=== PATIENT | male | born 1955 | race Two or more races ===

== ENCOUNTER 2018-12-23 19:26 | Inpatient (IN) | payer OTHER ==
[2018-12-23] VITALS (7 sets, daily range): BP systolic 95–132; BP diastolic 59–78
[~2018-12-23] VITALS: Ht 162.6 cm; Wt 68.0 kg
--- NOTE | 2018-12-23 19:30 | NUR ---
PT BIB RA. COMP OF "FEELING SOB" SAT 85% RA. NO ACUTE DISTRESS AT THIS TIME. RT PAGED AND AT BEDSIDE. MD AWARE OF PT CONDITION. PT AOX4. AMBULATORY. AWAITING EVAL.
[2018-12-23] MEDS ORDERED: ALBUTEROL FS 2.5 MG/3 ML VIAL.NEB ONE (19:41)
[2018-12-23] MEDS ORDERED: IPRATROPIUM NEB FS 0.5 MG/2.5 ML AMPUL.NEB ONE (19:41)
[2018-12-23] MEDS ORDERED: CEFEPIME 1 GM VIAL ONE (19:42)
--- NOTE | 2018-12-23 19:45 | NUR ---
LABS DRAWN SENT FOR ANALYSIS.
[2018-12-23 19:55] LABS: BASOPHILS % (AUTO) 0.1 % (0.0-2.0); HEMATOCRIT 26 % (39-51); HEMOGLOBIN 8.2 g/dL (13.5-17.5); LYMPHOCYTES # (AUTO) 0.4 /CMM (0.8-4.8); LYMPHOCYTES % (AUTO) 1.8 % (20.0-44.0); MEAN CORPUSCULAR HGB CONC 32 g/dl (31.0-36.0); MEAN CORPUSCULAR VOLUME 91 fL (80-96); MONOCYTES # (AUTO) 0.2 /CMM (0.1-1.30); MONOCYTES % (AUTO) 0.9 % (2.0-12.0); NEUTROPHILS # (AUTO) 21.4 /CMM (1.8-8.9); NEUTROPHILS % (AUTO) 97.2 % (43.0-81.0); PLATELET COUNT (AUTO) 203 /CMM (150-450); RED BLOOD CELL COUNT(AUTO) 2.84 MIL/uL (4.5-6.0)
[2018-12-23] MEDS ORDERED: IPRATROPIUM NEB FS 0.5 MG/2.5 ML AMPUL.NEB NEB ONE (20:00)
[2018-12-23] MEDS ORDERED: ALBUTEROL FS 2.5 MG/3 ML VIAL.NEB NEB ONE (20:00)
[2018-12-23] MEDS ORDERED: IV NS 0.9% 1,000 ML BAG IV ONE (20:00)
[2018-12-23] MEDS ORDERED: CEFEPIME 1 GM in IV D5W 50 ML IV ONE (20:00)
[2018-12-23 20:20] LABS: ALBUMIN 3.5 g/dL (3.4-5.0); BILIRUBIN,DIRECT 0.1 mg/dL (0.0-0.2); BILIRUBIN,TOTAL 0.4 mg/dL (0.2-1.0); CALCIUM, SERUM 9.7 mg/dL (8.5-10.1); CREATININE 0.9 mg/dL (0.6-1.3); POTASSIUM 4.4 mmol/L (3.5-5.1); TOTAL PROTEIN, SERUM 7.7 g/dL (6.4-8.2)
[2018-12-23 20:32] LABS: ABG BASE EXCESS 0.5 mmol/L; ABG OXYGEN SATURATION 99.2 % (92.0-98.5); ABG PCO2 34.9 mmHg (35.0-45.0); ABG PH 7.459 (7.350-7.450); ABG PO2 345.2 mmHg (75.0-100.0); AaDO2 332.9 mmHg; COHb 0.9 % (0.5-1.5); MetHb 0.4 % (0.0-1.5); O2Hb 97.9 % (94.0-97.0); SITE, ABG Left Brachial; VENT MODE, BG ST 18/8
[2018-12-23 20:45] LABS: APPEARANCE,URINE Cloudy (CLEAR); BILIRUBIN,URINE Negative (NEGATIVE); BLOOD, URINE Negative Ery/uL (NEGATIVE); COLOR,URINE Yellow (YELLOW); KETONES,URINE 15 (NEGATIVE); LEUKOCYTE ESTERASE ,URINE Negative (NEGATIVE); NITRITE, URINE Negative (NEGATIVE); PROTEIN,URINE 30 mg/dl (NEGATIVE); UGLUCOSE 500 MG/DL mg/dL (NEGATIVE); UROBILINOGEN,URINE 0.2 EU/dL (0.2)
--- NOTE | 2018-12-23 20:49 | NUR ---
Patient is resting comfortably in bed with eyes closed. Easily aroused. VSS
--- NOTE | 2018-12-23 21:01 | NUR ---
CALLED ROSA JUAN
[2018-12-23 21:11] LABS: BACTERIA,URINE Rare /HPF (None Seen); MUCUS,URINE Few /LPF (None Seen); RBC,URINE 0-2 /HPF (0-2); SQUAMOUS EPITHELIAL CELL,UR Rare /HPF (None Seen); URINE AMORPHOUS URATE Few /HPF (None Seen); WBC,URINE 0-2 /HPF (0-3)
--- NOTE | 2018-12-23 21:34 | NUR ---
REPORT CALLED TO HEATH RN FOR ADMISSION TO ICU RM [id number]
--- NOTE | 2018-12-23 21:47 | NUR ---
CHRISTMAS TREE FARM MANAGERTELECOMMUNICATIONS MANAGER NOTES RECEIVED PATIENT FROM ER VIA [facility]. PATIENT IS AWAKE, ALERT AND ORIENTED X3, ABLE TO VERBALIZE NEEDS, BUT DROWSY/LETHARGIC DUE TO RESPIRATORY STATUS. PATIENT PLACED BACK ON BIPAP, TOLERATING WELL, PATIENT STATES HIS BREATHING HAS IMPROVED SINCE INITIATION OF BIPAP. NOTED WITH CLARE PICC, BOTH PORTS FLUSHED WITH NS, NOTED WITH GOOD VENOUS RETURN. WILL INITIATE IV FLUIDS ORDERED. SKIN ISSUES PHOTOGRAPHED AND DOCUMENTED PER PROTOCOL. PLAN OF CARE DISCUSSED WITH PATIENT AND FAMILY MEMBERS, ALL VERBALIZING UNDERSTANDING. WILL CONTINUE TO CLOSELY MONITOR
[2018-12-23 21:50] LABS: LYMPHOCYTES % (MANUAL) 3 % (16-48); MONOCYTES % (MANUAL) 2 % (0-11.0); NEUTROPHILS % (MANUAL) 95 (42-76)
--- NOTE | 2018-12-23 21:55 | NUR ---
PT TRANSFERRED TO ICU FROM ER, AWAKE AND ALERT ON BIPAP ON NOTED SETTINGS. MEPILEX AROUND THE BRIDGE OF THE NOSE. WILL CONTINUE TO MONITOR. Addendum: 12/23/18 at 2157 by MEHRAN LYON RT Amended: Links added.
[2018-12-23] MEDS ORDERED: MORPHINE SULFATE INJ 4 MG/ML DISP.SYRIN IV PRN (22:00)
[2018-12-23] MEDS ORDERED: ONDANSETRON HCL/PF 4 MG/2 ML VIAL IVP PRN (22:00)
[2018-12-23] MEDS ORDERED: Z GUARD REMEDY 2 OZ OINT TP PRN (22:00)
[2018-12-23] MEDS ORDERED: ACETAMINOPHEN 325 MG TABLET PO PRN (22:00)
[2018-12-23] MEDS ORDERED: ZOLPIDEM TARTRATE 5 MG TABLET PO PRN (22:00)
[2018-12-23] MEDS: IV NS 0.9% 1,000 ML IV PRN (22:18)
[2018-12-23] MEDS ORDERED: ENOXAPARIN SODIUM 40 MG/0.4 ML DISP.SYRIN SQ ONE (22:30)
[2018-12-23] MEDS ORDERED: PIPERACILLIN /TAZOBACTAM 3.375 G VIAL IV ONE (22:33)
[2018-12-23] MEDS ORDERED: PIPERACILLIN /TAZOBACTAM 3.375 G in IV D5W 100 ML IV SCH (23:00)
[2018-12-23] MEDS ORDERED: IV NS 0.9% 250 ML IV ONE (23:00)
[2018-12-23] MEDS ORDERED: HYDR-4384 PO (23:01)
[2018-12-23] MEDS ORDERED: ATOR80TA PO (23:01)
[2018-12-23] MEDS ORDERED: EMPA25TA PO (23:01)
[2018-12-23] MEDS ORDERED: PIOG30TA10 PO (23:01)
[2018-12-23] MEDS ORDERED: FENO54TA PO (23:01)
--- NOTE | 2018-12-23 23:02 | NUR ---
FAMILY MEMBERS PHONE NUMBERS SISTER - NADIA GOOD [phone] FROM [facility]BER - TRAYEliecer ORTIZJANNA [phone]
[2018-12-23] MEDS ORDERED: DEXTROSE 50%-WATER 50 ML DISP.SYRIN IV PRN (23:30)
--- NOTE | 2018-12-23 23:32 | NUR ---
BIPAP SETTINGS CHANGED PER DR BRYANT. LUCRECIA JOE NOTIFIED. Addendum: 12/23/18 at 2333 by MEHRAN LYON RT Amended: Links added.
[2018-12-24] VITALS (44 sets, daily range): BP systolic 90–126; BP diastolic 49–77
[2018-12-24] MEDS ORDERED: PIPERACILLIN /TAZOBACTAM 3.375 G in IV D5W 50 ML IV SCH ×2
[2018-12-24 04:46] LABS: BASOPHILS % (AUTO) 0.1 % (0.0-2.0); HEMATOCRIT 22 % (39-51); HEMOGLOBIN 7.2 g/dL (13.5-17.5); LYMPHOCYTES # (AUTO) 0.7 /CMM (0.8-4.8); LYMPHOCYTES % (AUTO) 4.1 % (20.0-44.0); MEAN CORPUSCULAR HGB CONC 32 g/dl (31.0-36.0); MEAN CORPUSCULAR VOLUME 90 fL (80-96); MONOCYTES # (AUTO) 0.3 /CMM (0.1-1.30); MONOCYTES % (AUTO) 1.7 % (2.0-12.0); NEUTROPHILS # (AUTO) 15.3 /CMM (1.8-8.9); NEUTROPHILS % (AUTO) 94.1 % (43.0-81.0); PLATELET COUNT (AUTO) 155 /CMM (150-450); RED BLOOD CELL COUNT(AUTO) 2.47 MIL/uL (4.5-6.0); WHITE BLOOD COUNT (AUTO) 16.2 K/uL (4.3-11.0)
[2018-12-24 05:04] LABS: ALBUMIN 3.1 g/dL (3.4-5.0); BILIRUBIN,TOTAL 0.4 mg/dL (0.2-1.0); CALCIUM, SERUM 8.8 mg/dL (8.5-10.1); CREATININE 0.7 mg/dL (0.6-1.3); MAGNESIUM 1.7 mg/dL (1.8-2.4); PHOSPHORUS 3.3 mg/dL (2.5-4.9); POTASSIUM 3.5 mmol/L (3.5-5.1); TOTAL PROTEIN, SERUM 6.8 g/dL (6.4-8.2)
[2018-12-24 05:12] LABS: THYROID STIMULATING HORMONE 1.195 uIU/mL (0.358-3.74)
[2018-12-24] MEDS: methylPREDNISolone SOD SUCC 40 MG/ML VIAL IV SCH ×3 (05:22→21:21)
--- NOTE | 2018-12-24 07:00 | NUR ---
ROLL TENSION TESTER CLOSING NOTES PATIENT RESTING IN BED, APPEARS COMFORTABLE, REMAINS ON BIPAP AT PRESCRIBED SETTINGS. WILL ENDORSE THE PATIENT TO THE AM SHIFT NURSE FOR CONTINUITY OF CARE
--- NOTE | 2018-12-24 07:05 | NUR ---
SECONDARY HISTORY TEACHER OPENING NOTES RECEIVED PT FROM NIGHTSHIFT RN ON BIPAP (15/ RATE 12, FIO2 50%). PT A/O X4. PT SATING WELL AT 98%. VSS AT THIS TIME. HE DENIES ANY PAIN AT THIS TIME. RIGHT UPPER ARM PICC LINE NOTED TO BE PATENT AND INTACT. NO REDNESS OR SIGNS OF INFILTRATION NOTED. PT TOLERATING NS INFUSION AT ORDERED RATE WELL. PT INFORMED ABOUT UPCOMING THORACENTESIS. WILL CLARIFY ORDERS WITH MD AND OBTAIN CONSENTS. BED IN LOW LOCKED POSITION, SIDE RAILS UP X2, CALL LIGHT WITHIN REACH. WILL CONTINUE TO MONITOR
[2018-12-24 08:47] LABS: ABG BASE EXCESS 0.8 mmol/L; ABG OXYGEN SATURATION 92.6 % (92.0-98.5); ABG PCO2 39.5 mmHg (35.0-45.0); ABG PH 7.424 (7.350-7.450); ABG PO2 71.1 mmHg (75.0-100.0); COHb 0.4 % (0.5-1.5); MetHb 0.8 % (0.0-1.5); O2Hb 91.5 % (94.0-97.0); SITE, ABG Right Radial
[2018-12-24] MEDS: BLOOD SUGAR DIAGNOSTIC 1 EACH STRIP IN SCH ×4 (08:55→22:08)
[2018-12-24] MEDS: PANTOPRAZOLE 40 MG TABLET.DR PO SCH (08:56)
[2018-12-24] MEDS: PIOGLITAZONE HCL 15 MG TABLET PO SCH (08:56)
[2018-12-24] MEDS: IV NS 0.9% 1,000 ML IV PRN (08:56)
[2018-12-24] MEDS: PIPERACILLIN /TAZOBACTAM 3.375 G in IV D5W 100 ML IV SCH ×3 (08:59→23:59)
--- NOTE | 2018-12-24 09:15 | NUR ---
MOTOR GRADER OPERATOR NOTES: THORACENTESIS CLARIFICATION DR. HUANG AT BEDSIDE. MD ASKED TO CLARIFY PT'S THORACENTESIS ORDERS THE CHEST X-RAY REVEALS A LARGE PLEURAL EFFUSION OF THE PT'S RIGHT SIDE HOWEVER THE ORDER IS FOR THE LEFT. PER MD "HAVE STENCIL INSPECTOR LOOK AT BOTH SIDES AND HAVE THEM REMOVED FROM THE GREATER SIDE". STENCIL INSPECTOR MADE AWARE. PER TECH, RADIOLOGIST WILL NOT BE IN UNTIL AROUND 1PM. PT SIGNED CONSENT AND MADE AWARE OF TIMING
--- NOTE | 2018-12-24 11:00 | NUR ---
FREIGHT CALLER NOTES: MD ROUNDING (DR REILLY) DR REILLY AT BEDSIDE AND UPDATED ON PT'S CONDITION AND CURRENT PLAN OF CARE. MD ALSO MADE AWARE OF PT'S CURRENT LAB VALUES AND MG OF 1.7. VERBAL ORDER OBTAINED FROM MD TO REPLACE WITH 1 G OF MAG. ORDER IMPUTED DIRECTED
[2018-12-24] MEDS: ALBUTEROL HALF STRENGTH 1.25 MG/3 ML VIAL.NEB NEB SCH ×4 (11:09→23:33)
[2018-12-24] MEDS: IPRATROPIUM NEB FS 0.5 MG/2.5 ML AMPUL.NEB NEB SCH ×4 (11:09→23:33)
[2018-12-24] MEDS ORDERED: Magnesium 1GM/D5W 100ML PREMIX 100 ML IV SCH ×2 (11:30→13:00)
--- NOTE | 2018-12-24 12:00 | NUR ---
SOLDER SPRAYER NOTES: ACCU CHECK PT HAS A CURRENT BS LEVEL OF 133. NO INSULIN GIVEN AT THIS TIME PT IS ON BIPAP AND NOT EATING
[2018-12-24] MEDS ORDERED: Magnesium 1GM/D5W 100ML PREMIX PIGGYBACK IV ONE (13:00)
--- NOTE | 2018-12-24 13:38 | NUR ---
PT REFUSED FULL BED BATH AND LINEN CHANGES WHEN OFFERED AND ONLY WANTED TO WIPE HIS FACE AND CLEAN HIS MOUTH
--- NOTE | 2018-12-24 14:40 | NUR ---
INDUSTRIAL ENERGY ENGINEER NOTES: S/P THORACENTESIS PT S/P THORACENTESIS. 1260ML REMOVED. RIGHT PLEURAL FLUID SENT TO LAB FOR CYTOLOGY AND ANALYSIS PER DR. HUANG'S ORDER
--- NOTE | 2018-12-24 15:47 | NUR ---
FULL BED BATH AND LINEN CHANGE COMPLETED AT THIS TIME
--- NOTE | 2018-12-24 15:50 | NUR ---
CASE AIDE NOTES: BIPAP REMOVAL BIPAP REMOVED BY RT. DR. HUANG ON UNIT AND AWARE. PT PLACED ON 4L VIA NC AND SUSTAINING AN 02 SAT ABOVE 94%. ABG TO BE COMPLETED IN 1 HR PER MD'S ORDER
[2018-12-24 17:18] LABS: ABG BASE EXCESS 1.1 mmol/L; ABG OXYGEN SATURATION 94.3 % (92.0-98.5); ABG PCO2 38.8 mmHg (35.0-45.0); ABG PH 7.434 (7.350-7.450); ABG PO2 74.5 mmHg (75.0-100.0); AaDO2 137.2 mmHg; COHb 0.1 % (0.5-1.5); MetHb 0.6 % (0.0-1.5); O2Hb 93.6 % (94.0-97.0); SITE, ABG Right Radial; VENT MODE, BG N/C
[2018-12-24] MEDS: INSULIN REGULAR, HUMAN 100 UNIT/ML 3 ML VIAL SQ PRN ×2 (17:39→22:13)
--- NOTE | 2018-12-24 17:49 | NUR ---
RT END OF THE SHIFT REPORT; PT. 63 Y OLD MALE REC. @0700 AM ON BIPAP WIT NOTED SETTINGS, ALARMS ARE SET. BIPAP ON RED OUTLET, AMBU BAG AT THE BEDSIDE. EQUAL CHEST RISE NOTED. PT. AWAKE AND RESPONSIVE, @1335 PLACED ON 4L/MIN O2 PER DR. HUANG ORDER. ABG RESULTS ARE REPORTED TO RN, RIVET THROWER. PT. RODOLFO. WELL AND B/S BILATERALLY DIM. TX'S GIVEN Q4 INLINE AND RODOLFO. WELL NO ADVERSE REACTION NOTED. CONTINUE TO MONITOR AND REPORT WILL PASS TO PM SHIFT. Addendum: 12/24/18 at 1753 by GRACE RUIZ RT Amended: Links added.
--- NOTE | 2018-12-24 18:40 | NUR ---
AWARD MACHINE OPERATOR CLOSING NOTES PT REMAINS STABLE. ALL NEEDS MET DURING SHIFT AND ORDER CARRIED OUT ACCORDINGLY. ALL DUE MEDS GIVEN. PRN CARE RENDERED. HE CONTINUES TOLERATING NC @4L AND SUSTAINING AN O2 SAT ABOVE 94%. HE DENIES ANY SOB OR DIFFICULTY BREATHING AT THIS TIME. VSS POST THORACENTESIS AND THROUGHOUT SHIFT. PICC LINE REMAINS PATENT AND INTACT. PT TOLERATING ZOSYN AND NS INFUSION WELL. SAFETY MEASURES REMAIN IN PLACE. WILL ENDORSE TO NIGHTSHIFT RN FOR MOR
--- NOTE | 2018-12-24 20:00 | NUR ---
ICU/RN RECEIVED PT AWAKE ALERT AND OX4.ON N/C AT 4LPM,SAT 92-96%,SHORT OF BREATH W/ EXERTION,FAMILY AT BEDSIDE VISITING,PT DENIES PAIN,OFFERS NO COMPLAINTS.
[2018-12-24] MEDS ORDERED: ENOXAPARIN SODIUM 40 MG/0.4 ML DISP.SYRIN SQ SCH (21:00)
--- NOTE | 2018-12-24 21:36 | NUR ---
PT IS AWAKE AND ALERT ON 4L NC. NO RESP DISTRESS. O2 SAT 97%. BIPAP S/B. WILL CONTINUE TO MONITOR.
--- NOTE | 2018-12-24 22:26 | NUR ---
PT SOB, O2 SAT 88%. PT REQUESTED TO BE ON BIPAP. LUCRECIA ROJO NOTIFIED. WILL CONTINUE TO MONITOR. Addendum: 12/24/18 at 2228 by MEHRAN LYON RT Amended: Links added.
--- NOTE | 2018-12-24 23:40 | NUR ---
FIO2 TITRATED TO 40%. NOTIFIED LUCRECIA ROJO.
[2018-12-25] VITALS (30 sets, daily range): BP systolic 88–137; BP diastolic 49–77
--- NOTE | 2018-12-25 02:00 | NUR ---
ICU/RN SLEEPING,RESPIRATIONS REGULAR AND EVEN.TOLERATING BIPAP WELL.VITAL SIGNS STABLE.
[2018-12-25] MEDS: IV NS 0.9% 1,000 ML IV PRN ×2 (02:43→16:50)
[2018-12-25] MEDS: IPRATROPIUM NEB FS 0.5 MG/2.5 ML AMPUL.NEB NEB SCH ×4 (03:24→15:21)
[2018-12-25] MEDS: ALBUTEROL HALF STRENGTH 1.25 MG/3 ML VIAL.NEB NEB SCH ×4 (03:24→15:21)
[2018-12-25 04:25] LABS: HEMATOCRIT 24 % (39-51); HEMOGLOBIN 7.7 g/dL (13.5-17.5); LYMPHOCYTES # (AUTO) 0.3 /CMM (0.8-4.8); LYMPHOCYTES % (AUTO) 2.1 % (20.0-44.0); MEAN CORPUSCULAR HGB CONC 33 g/dl (31.0-36.0); MEAN CORPUSCULAR VOLUME 89 fL (80-96); MONOCYTES # (AUTO) 0.2 /CMM (0.1-1.30); MONOCYTES % (AUTO) 1.8 % (2.0-12.0); NEUTROPHILS # (AUTO) 12.5 /CMM (1.8-8.9); NEUTROPHILS % (AUTO) 96.1 % (43.0-81.0); PLATELET COUNT (AUTO) 214 /CMM (150-450); RED BLOOD CELL COUNT(AUTO) 2.65 MIL/uL (4.5-6.0)
[2018-12-25 04:34] LABS: CALCIUM, SERUM 8.5 mg/dL (8.5-10.1); CREATININE 0.7 mg/dL (0.6-1.3); MAGNESIUM 1.9 mg/dL (1.8-2.4); PHOSPHORUS 2.8 mg/dL (2.5-4.9); POTASSIUM 3.6 mmol/L (3.5-5.1)
[2018-12-25] MEDS: methylPREDNISolone SOD SUCC 40 MG/ML VIAL IV SCH ×2 (05:10→12:16)
[2018-12-25 05:15] LABS: BAND % (MANUAL) 3 % (0.0-5.0); LYMPHOCYTES % (MANUAL) 2 % (16-48); MONOCYTES % (MANUAL) 2 % (0-11.0); NEUTROPHILS % (MANUAL) 93 (42-76)
--- NOTE | 2018-12-25 06:00 | NUR ---
ICU/RN REMAINS ON BIPAP.SLEPT WELL.MONITOR SINUS RHYTHM.
--- NOTE | 2018-12-25 07:32 | NUR ---
WARDROBE ATTENDANT OPENING NOTES RECEIVED PT FROM NIGHTSHIFT RN IN STABLE CONDITION. PT A/O X4. PT PLACED ON NC AND SATING WELL AT 96%. HE DENIES ANY PAIN AT THIS TIME. RIGHT UPPER ARM PICC LINE NOTED TO BE PATENT AND INTACT. NO REDNESS OR SIGNS OF INFILTRATION NOTED. PT TOLERATING NS INFUSION AT ORDERED RATE WELL. BED IN LOW LOCKED POSITION, SIDE RAILS UP X2, CALL LIGHT WITHIN REACH. WILL CONTINUE TO MONITOR
[2018-12-25] MEDS: PIPERACILLIN /TAZOBACTAM 3.375 G in IV D5W 100 ML IV SCH ×2 (08:12→16:48)
[2018-12-25] MEDS: BLOOD SUGAR DIAGNOSTIC 1 EACH STRIP IN SCH ×3 (08:12→16:50)
[2018-12-25] MEDS: PIOGLITAZONE HCL 15 MG TABLET PO SCH (08:13)
[2018-12-25] MEDS: PANTOPRAZOLE 40 MG TABLET.DR PO SCH (08:13)
[2018-12-25] MEDS: INSULIN REGULAR, HUMAN 100 UNIT/ML 3 ML VIAL SQ PRN ×3 (08:14→16:59)
--- NOTE | 2018-12-25 09:20 | NUR ---
WOUND CARE CONSULT: PT PRESENTS WITH INTACT SKIN AND DRY INTACT BANDAID TO LEFT BACK FROM FLUID REMOVAL PER PT REPORT. RECOMMENDATIONS MADE FOR SKIN PROTECTION. DISCUSSED WITH NURSING STAFF. WILL SEE PRN. CURRENT JOE SCORE IS 19.
[2018-12-25] MEDS ORDERED: Morphine Sulfate Inj IV (10:14)
[2018-12-25] MEDS ORDERED: methylPREDNISolone SOD SUCC IV (10:14)
[2018-12-25] MEDS ORDERED: ONDA4VIA23 IVP (10:14)
[2018-12-25] MEDS ORDERED: Blood Sugar Diagnostic IN (10:14)
[2018-12-25] MEDS ORDERED: PANT40TA2 PO (10:14)
[2018-12-25] MEDS ORDERED: ENOX40DI SQ (10:14)
[2018-12-25] MEDS ORDERED: ACET325T53 PO (10:14)
[2018-12-25] MEDS ORDERED: IPRA0.2S9 NEB (10:14)
[2018-12-25] MEDS ORDERED: ALBU1.25 NEB (10:14)
--- NOTE | 2018-12-25 12:03 | NUR ---
OFFSET PROOF PRESS OPERATOR NOTES: ZARXIO ADMINISTRATION DR REILLY INFORMED THAT PT HAS BROUGHT IN HIS HOME MEDICATION ZARIXO IN WHICH HE MUST TAKE EVERYDAY. GAVE TELEPHONE ORDER TO ADMINISTER A DOSE TODAY PRIOR TO TRANSFER. PHARMACIST LUZ MARINA MADE AWARE.
[2018-12-25] MEDS ORDERED: ZARXIO 300 MCG/0.5 ML SQ ONE (13:00)
--- NOTE | 2018-12-25 18:08 | NUR ---
FIELD TRAFFIC INVESTIGATOR NOTES: PENDING TRANSFER 1733: CALL RECEIVED FROM EVARISTO THE MOBILE HOME PARK MANAGER FROM [facility]. PT ACCEPTED BY DR. Anita NDIAYE TO THEIR TELEMETRY UNIT IN ROOM 5225. PER EVARISTO, PT'S AMBULANCE IS EXPECTED TO ARRIVE AROUND 1830. 1745: REPORT CALLED TO [phone]. REPORT GIVEN TO YARIEL LUJAN RESOURCE NURSE.
--- NOTE | 2018-12-25 19:30 | NUR ---
PEER COUNSELORJOINT CLEANING MACHINE OPERATOR NOTES PT DISCHARGED AND TRANSFERRED TO [facility] IN STABLE CONDITION AMBULANCE TRANSPORT. ALL NEEDS MET DURING SHIFT AND ORDER CARRIED OUT ACCORDINGLY. ALL DUE MEDS GIVEN. ALL BELONGINGS VERIFIED PRIOR TO D/C. VSS THROUGHOUT SHIFT. Addendum: 12/25/18 at 1933 by BEV PENALOZA RN RIGHT UPPER ARM PICC LINE REMAINED PATENT AND INTACT UPON TRANSFER. NO REDNESS OR SIGNS OF INFILTRATION NOTED. D/C PHOTOS TAKEN AND PLACED IN PT'S CHART. HE SIGNED ALL D/C PAPERWORK. COPIES MADE AND PLACED IN CHART.
== END 2018-12-25 19:28 | disposition short-term general hospital (02) | DRG 177 ==
LOC: ER 19:28 → ICU 21:27
PROVIDERS: ADMIT Nurse Practitioner Acute Care
PROC: 5A09457 Assistance with Respiratory Ventilation, 24-96 Consecutive Hours, Continuous Positive Airway Pressure (ICD-10-PCS; principal; 2018-12-23)
PROC: 0W993ZZ Drainage of Right Pleural Cavity, Percutaneous Approach (ICD-10-PCS; 2018-12-24)
PROC: B548ZZA Ultrasonography of Superior Vena Cava, Guidance (ICD-10-PCS; 2018-12-24)
PROC: 02HV33Z Insertion of Infusion Device into Superior Vena Cava, Percutaneous Approach (ICD-10-PCS; 2018-12-24)
DX: J15.6 Pneumonia due to other Gram-negative bacteria (principal); J96.01 Acute respiratory failure with hypoxia; J91.0 Malignant pleural effusion; C34.90 Malignant neoplasm of unspecified part of unspecified bronchus or lung; E11.9 Type 2 diabetes mellitus without complications; D63.8 Anemia in other chronic diseases classified elsewhere; Z87.891 Personal history of nicotine dependence; Z79.899 Other long term (current) drug therapy
CPT/HCPCS: 36415; 36600; 71045-TC; 76942-TC; 80048-TC; 80053-TC; 80061-TC; 80076-TC; 81000-TC; 82803-TC; 82962-TC; 83540-TC; 83605-TC; 83735-TC; 83880; 84100-TC; 84443-TC; 84484-TC; 85025-TC; 85730-TC; 87040-TC; 87081-TC; 87086-TC; 88305-TC; 88312-TC; 89051-TC; 93307-TC; 94760-TC; 94799-TC; G0378; J0692; J1650; J1815; J2543; J2920; J3475; J7030; J7050; J7060